=== PATIENT | female | born 1955 | race Caucasian/White ===

== ENCOUNTER → 2019-03-14 | Outpatient (CLI) | payer BC ==
[2019-03-14 12:32] LABS: ALANINE AMINOTRANSFERASE 23 U/L (0-55); ALBUMIN 4.2 GM/DL (3.2-4.5); ALKALINE PHOSPHATASE 77 U/L (40-136); BILIRUBIN,TOTAL 0.2 MG/DL (0.1-1.0); BUN/CREATININE RATIO 23; CALCIUM 9.7 MG/DL (8.5-10.1); CARBON DIOXIDE 28 MMOL/L (21-32); CHLORIDE 106 MMOL/L (98-107); GFR ESTIMATED > 60; GLUCOSE 108 MG/DL (70-105); POTASSIUM 3.7 MMOL/L (3.6-5.0); SODIUM 145 MMOL/L (135-145); TOTAL PROTEIN 6.8 GM/DL (6.4-8.2)
[2019-03-14 15:06] LABS: CHOLESTEROL 154 MG/DL (< 200); HDL CHOLESTEROL 63 MG/DL (40-60); TRIGLYCERIDES 88 MG/DL (<150); VLDL CHOLESTEROL 18 MG/DL (5-40)
== END ==
LOC: LAB FS 12:01
PROVIDERS: ATTEND Family Medicine
DX: Z01.419 Encounter for gynecological examination (general) (routine) without abnormal findings (principal)
CPT/HCPCS: 36415; 80053; 80061

== ENCOUNTER → 2019-05-02 | Outpatient (CLI) | payer BC, OTHER | LOC: LAB 19:57 | PROVIDERS: ATTEND Family Medicine | DX: Z01.89 Encounter for other specified special examinations (principal) | CPT/HCPCS: 87430 ==

== ENCOUNTER → 2020-04-22 | Outpatient (CLI) | payer OTHER ==
[2020-04-22 09:25] LABS: ALANINE AMINOTRANSFERASE 17 U/L (0-55); ALBUMIN 4.2 GM/DL (3.2-4.5); ALKALINE PHOSPHATASE 72 U/L (40-136); BILIRUBIN,TOTAL 0.4 MG/DL (0.1-1.0); BUN/CREATININE RATIO 20; CALCIUM 9.4 MG/DL (8.5-10.1); CARBON DIOXIDE 25 MMOL/L (21-32); CHLORIDE 111 MMOL/L (98-107); CREATININE SERUM 0.89 MG/DL (0.60-1.30); GFR ESTIMATED > 60; GLUCOSE 103 MG/DL (70-105); POTASSIUM 4.4 MMOL/L (3.6-5.0); SODIUM 146 MMOL/L (135-145); TOTAL PROTEIN 6.5 GM/DL (6.4-8.2)
[2020-04-22 14:58] LABS: TRIGLYCERIDES 100 MG/DL (<150); VLDL CHOLESTEROL 20 MG/DL (5-40)
[2020-04-22 15:03] LABS: CHOLESTEROL 147 MG/DL (< 200)
[2020-04-22 15:04] LABS: HDL CHOLESTEROL 60 MG/DL (40-60)
== END ==
LOC: LAB FS 08:35
PROVIDERS: ATTEND Family Medicine
DX: Z00.00 Encounter for general adult medical examination without abnormal findings (principal)
CPT/HCPCS: 36415; 80053; 80061; 84443

== ENCOUNTER → 2021-01-15 | Outpatient (CLI) | payer OTHER ==
[2021-01-15 10:03] LABS: POTASSIUM 4.2 MMOL/L (3.6-5.0)
[2021-01-15 10:04] LABS: ALBUMIN 4.1 GM/DL (3.2-4.5); BILIRUBIN,TOTAL 0.4 MG/DL (0.1-1.0); CALCIUM 9.5 MG/DL (8.5-10.1); CREATININE SERUM 0.98 MG/DL (0.60-1.30); TOTAL PROTEIN 6.9 GM/DL (6.4-8.2)
== END ==
LOC: LAB FS 08:19
PROVIDERS: ATTEND Family Medicine
DX: Z00.00 Encounter for general adult medical examination without abnormal findings (principal)
CPT/HCPCS: 36415; 80053; 80061

== ENCOUNTER → 2021-09-08 | Outpatient (CLI) | payer OTHER | LOC: LABNPT 09:14 | PROVIDERS: ATTEND Family Medicine | DX: Z20.822 Contact with and (suspected) exposure to COVID-19 (principal); Z76.89 Persons encountering health services in other specified circumstances | CPT/HCPCS: 87636 ==

== ENCOUNTER → 2022-02-11 | Outpatient (CLI) | payer MEDICARE ==
[2022-02-11 11:29] LABS: CREATININE SERUM 0.99 MG/DL (0.60-1.30); POTASSIUM 4.2 MMOL/L (3.6-5.0)
[2022-02-11 11:30] LABS: ALBUMIN 4.3 GM/DL (3.2-4.5); BILIRUBIN,TOTAL 0.4 MG/DL (0.1-1.0); CALCIUM 9.8 MG/DL (8.5-10.1)
[2022-02-12 09:09] LABS: FREE T4 (FREE THYROXINE) 1.01 NG/DL (0.70-1.48)
== END ==
LOC: LAB FS 10:03
PROVIDERS: ATTEND Registered Nurse Emergency
DX: Z23 Encounter for immunization (principal); Z01.419 Encounter for gynecological examination (general) (routine) without abnormal findings; Z12.31 Encounter for screening mammogram for malignant neoplasm of breast; E02 Subclinical iodine-deficiency hypothyroidism; I10 Essential (primary) hypertension
CPT/HCPCS: 36415; 80053; 80061; 84439; 84443